=== PATIENT | female | born 1985 | race Caucasian/White ===

== ENCOUNTER 2016-10-13 18:23 | Observation (INO) | payer OTHER ==
[~2016-10-13] VITALS: Ht 160 cm; Wt 67.3 kg
== END 2016-10-13 22:40 | disposition home or self-care (01) ==
LOC: LDOP 18:23 → INTOOBSV 20:30 → LDIP 20:30
PROVIDERS: ADMIT Family Medicine; ATTEND Obstetrics & Gynecology Maternal & Fetal Medicine
DX: O62.9 Abnormality of forces of labor, unspecified (principal); O36.0130 Maternal care for anti-D [Rh] antibodies, third trimester, not applicable or unspecified; Z3A.28 28 weeks gestation of pregnancy
CPT/HCPCS: 36415; 59025; 76815; 85025; 85460; G0378

== ENCOUNTER 2016-11-20 14:17 | Inpatient (IN) | payer OTHER ==
[~2016-11-20] VITALS: Ht 160 cm; Wt 70.0 kg
[2016-11-20] MEDS: LACTATED RINGERS 1,000 ML IV SCH (14:31)
[2016-11-20] MEDS ORDERED: PLEASE ENTER HEIGHT AND WEIGHT MC SCH (15:00)
[2016-11-20] MEDS ORDERED: OXYTOCIN 30U/ 0.9% NaCL 500ML 500 ML IV ONE (15:29)
[2016-11-20] MEDS: D5%-LACTATED RINGERS 1,000 ML IV SCH ×2 (15:29→23:29)
[2016-11-20] MEDS ORDERED: AMPICILLIN 2 GM in SODIUM CHLORIDE 0.9% 100 ML IVPB STA (15:29)
[2016-11-20] MEDS ORDERED: FENTANYL PF 100 MCG/2ML IVPush PRN (15:30)
[2016-11-20] MEDS ORDERED: CALCIUM CARBONATE 500 MG TAB.CHEW PO PRN (15:30)
[2016-11-20] MEDS ORDERED: ONDANSETRON 2MG/ML, 2ML IVPush PRN (15:30)
[2016-11-20] MEDS ORDERED: MAGNESIUM SULF. PMX 20GM/500ML 500 ML IV ONE (17:55)
[2016-11-20] MEDS ORDERED: TRINTELLIX 5 MG HOMEMEDPO SCH (18:30)
[2016-11-20] MEDS: LACTATED RINGERS 1,000 ML IV PRN (18:30)
[2016-11-20] MEDS ORDERED: DEPLIN 15 MG HOMEMEDPO SCH (18:30)
[2016-11-20] MEDS ORDERED: BETAMETHASONE 6 MG/ML, 5ML IM ONE (18:47)
[2016-11-20] MEDS: BETAMETHASONE 6 MG/ML, 5ML IM SCH (18:55)
[2016-11-20 19:00] VITALS: BP 112/65
[2016-11-20] MEDS ORDERED: MAGNESIUM SULFATE PMX 4GM/100M 100 ML IVPB ONE (19:00)
[2016-11-20] MEDS ORDERED: MAGNESIUM SULFATE PMX 2GM/50ML 50 ML IVPB ONE (19:00)
[2016-11-20] MEDS: AMPICILLIN 1 GM in SODIUM CHLORIDE 0.9% 50 ML IVPB SCH ×2 (19:17→23:25)
[2016-11-20] MEDS ORDERED: Trintellix PO (19:32)
[2016-11-20] MEDS ORDERED: PREN1TAB60 PO (19:32)
[2016-11-20] MEDS ORDERED: FOLIC ACID PO (19:32)
[2016-11-20] MEDS ORDERED: TRINTELLIX 10 MG HOMEMEDPO SCH (19:50)
[2016-11-20] MEDS ORDERED: NEWBORN KIT ONE (19:54)
[2016-11-20] MEDS: PRENATAL VIT/IRON/FA 1 EACH TABLET HOMEMEDPO SCH (21:00)
[2016-11-21] MEDS ORDERED: MAGNESIUM SULF. PMX 20GM/500ML 500 ML IV ONE ×3 (02:43→23:39)
[2016-11-21] MEDS: MAGNESIUM SULF. PMX 20GM/500ML 500 ML IV SCH ×4 (02:45→23:41)
[2016-11-21] MEDS: AMPICILLIN 1 GM in SODIUM CHLORIDE 0.9% 50 ML IVPB SCH ×6 (02:47→23:09)
[2016-11-21] MEDS: LACTATED RINGERS 1,000 ML IV SCH ×4 (07:29→23:29)
[2016-11-21] MEDS: D5%-LACTATED RINGERS 1,000 ML IV SCH ×3 (07:29→23:29)
[2016-11-21] MEDS ORDERED: ACETAMINOPHEN 325 MG TABLET ONE ×2 (07:53→19:42)
[2016-11-21] MEDS: ACETAMINOPHEN 325 MG TABLET PO PRN (07:59)
[2016-11-21 08:00] VITALS: BP 110/70
[2016-11-21] MEDS: DEPLIN 15 MG HOMEMEDPO SCH (09:00)
[2016-11-21] MEDS: TRINTELLIX HOMEMEDPO SCH (09:00)
[2016-11-21] MEDS: PRENATAL VIT/IRON/FA 1 EACH TABLET HOMEMEDPO SCH (09:00)
[2016-11-21 12:30] VITALS: BP 102/66
[2016-11-21] MEDS: BETAMETHASONE 6 MG/ML, 5ML IM SCH (18:43)
[2016-11-21] MEDS ORDERED: DIPHENHYDRAMINE 25 MG CAPSULE ONE (19:42)
[2016-11-21 19:45] VITALS: BP 116/79
[2016-11-21] MEDS: DIPHENHYDRAMINE 25 MG CAPSULE PO PRN (19:45)
[2016-11-21] MEDS ORDERED: DIPHENHYDRAMINE 12.5MG/5ML, 10ML UDC PO PRN (20:00)
[2016-11-21] MEDS: LACTATED RINGERS 1,000 ML IV PRN (23:17)
[2016-11-22] MEDS: AMPICILLIN 1 GM in SODIUM CHLORIDE 0.9% 50 ML IVPB SCH ×5 (02:40→19:41)
[2016-11-22 05:37] VITALS: BP 102/58
[2016-11-22] MEDS ORDERED: DOCUSATE 100 MG CAPSULE ONE (07:51)
[2016-11-22] MEDS ORDERED: ACETAMINOPHEN 325 MG TABLET ONE (07:51)
[2016-11-22] MEDS: ACETAMINOPHEN 325 MG TABLET PO PRN (07:54)
[2016-11-22] MEDS: DOCUSATE 100 MG CAPSULE PO PRN (07:54)
[2016-11-22] MEDS: TRINTELLIX HOMEMEDPO SCH (09:00)
[2016-11-22] MEDS ORDERED: MAGNESIUM SULF. PMX 20GM/500ML 500 ML IV ONE (09:08)
[2016-11-22] MEDS: MAGNESIUM SULF. PMX 20GM/500ML 500 ML IV SCH (09:22)
[2016-11-22] MEDS: LACTATED RINGERS 1,000 ML IV SCH (13:44)
[2016-11-22] MEDS: DEPLIN 15 MG HOMEMEDPO SCH (19:00)
[2016-11-22] MEDS: PRENATAL VIT/IRON/FA 1 EACH TABLET HOMEMEDPO SCH (19:00)
[2016-11-22] MEDS ORDERED: NEWBORN KIT ONE (20:43)
[2016-11-22] MEDS ORDERED: DIPHENHYDRAMINE 25 MG CAPSULE ONE (21:37)
[2016-11-22] MEDS: DIPHENHYDRAMINE 25 MG CAPSULE PO PRN (21:40)
[2016-11-23] MEDS: AMPICILLIN 1 GM in SODIUM CHLORIDE 0.9% 50 ML IVPB SCH ×4 (00:10→11:29)
[2016-11-23] MEDS ORDERED: CALCIUM CARBONATE 500 MG TAB.CHEW ONE (04:06)
[2016-11-23] MEDS ORDERED: LIDOCAINE 1%, 20ML ONE (08:06)
[2016-11-23] MEDS ORDERED: OXYTOCIN 30U/ 0.9% NaCL 500ML 500 ML ONE ×4 (08:06→19:04)
[2016-11-23] MEDS ORDERED: MISOPROSTOL 200 MCG TABLET ONE ×2 (08:06→10:47)
[2016-11-23] MEDS: OXYTOCIN 30U/ 0.9% NaCL 500ML 500 ML IV PRN ×2 (08:10→18:08)
[2016-11-23] MEDS ORDERED: ONDANSETRON 2MG/ML, 2ML ONE ×4 (08:33→20:47)
[2016-11-23] MEDS: LACTATED RINGERS 1,000 ML IV SCH ×3 (08:44→15:20)
[2016-11-23] MEDS: TRINTELLIX HOMEMEDPO SCH (09:00)
[2016-11-23] MEDS: DEPLIN 15 MG HOMEMEDPO SCH (09:00)
[2016-11-23] MEDS: PRENATAL VIT/IRON/FA 1 EACH TABLET HOMEMEDPO SCH (09:00)
[2016-11-23] MEDS ORDERED: LIDOCAINE/PF 1.5%-EPI 1:200K, 30ML ONE (09:22)
[2016-11-23] MEDS ORDERED: FENTANYL/BUPIV./NS/PF 250 ML EPIDCONT ONE (09:22)
[2016-11-23] MEDS ORDERED: FENTANYL/BUPIV./NS/PF 250 ML EPIDCONT SCH (09:58)
[2016-11-23] MEDS ORDERED: LACTATED RINGERS 1,000 ML IV SCH (09:58)
[2016-11-23] MEDS ORDERED: LACTATED RINGERS 1,000 ML IVBOLUS PRN (10:00)
[2016-11-23] MEDS ORDERED: NALOXONE 0.4 MG/ML, 1ML IVPush PRN (10:00)
[2016-11-23] MEDS ORDERED: EPHEDRINE 50 MG/ML, 1ML IVPush PRN (10:00)
[2016-11-23] MEDS ORDERED: SUCCINYLCHOLINE 20 MG/ML, 10ML ONE (10:54)
[2016-11-23] MEDS ORDERED: PROPOFOL 10 MG/ML, 20ML ONE (10:54)
[2016-11-23] MEDS ORDERED: EPHEDRINE 50 MG/ML, 1ML ONE (10:54)
[2016-11-23] MEDS ORDERED: DEXAMETHASONE 4 MG/ML, 1ML ONE (10:54)
[2016-11-23] MEDS ORDERED: CEFAZOLIN 1,000 MG ONE (10:54)
[2016-11-23] MEDS ORDERED: IBUPROFEN 600 MG TABLET ONE (16:41)
[2016-11-23] MEDS ORDERED: CALCIUM CARBONATE 500 MG TAB.CHEW PO PRN (17:00)
[2016-11-23] MEDS ORDERED: MEASLES,MUMPS&RUBELLA VACC/PF 0.5 ML SQ-VACC PRN (17:00)
[2016-11-23] MEDS ORDERED: MAGNESIUM HYDROXIDE 8%, 30ML UDC PO PRN (17:00)
[2016-11-23] MEDS ORDERED: RHOGAM FROM BLOOD BANK 1 NOTE EA IM/IV ONE (17:00)
[2016-11-23] MEDS ORDERED: OXYcodone/APAP 5/325MG TABLET PO PRN (17:00)
[2016-11-23] MEDS ORDERED: ACETAMINOPHEN 325 MG TABLET PO PRN ×2 (17:00)
[2016-11-23] MEDS ORDERED: IBUPROFEN 600 MG TABLET PO PRN (17:00)
[2016-11-23] MEDS ORDERED: DOCUSATE 100 MG CAPSULE PO PRN (17:00)
[2016-11-23] MEDS ORDERED: MISOPROSTOL 200 MCG TABLET PR PRN (17:00)
[2016-11-23] MEDS ORDERED: DIPH,PERTUSS(ACELL),TET VAC/PF NC IM-VACC PRN (17:00)
[2016-11-23] MEDS ORDERED: OXYcodone/APAP 5/325MG TABLET ONE (17:09)
[2016-11-23] MEDS: ONDANSETRON 2MG/ML, 2ML IV PRN (17:16)
[2016-11-23] MEDS: OXYcodone/APAP 5/325MG TABLET PO PRN (17:16)
[2016-11-23] MEDS ORDERED: METHYLERGONOVINE 0.2 MG/ML IM ONE (17:58)
[2016-11-23] MEDS: METHYLERGONOVINE 0.2 MG/ML IM SCH (18:07)
[2016-11-23] MEDS ORDERED: MISOPROSTOL 200 MCG TABLET PR ONE (18:30)
[2016-11-23 18:52] LABS: DIFF TOTAL CELLS COUNTED 100 CELL DIFF
[2016-11-23 18:53] LABS: VERIFY COUNTS? YES
[2016-11-23] MEDS: OXYTOCIN 30U/ 0.9% NaCL 500ML 500 ML IV SCH (19:07)
[2016-11-23] MEDS ORDERED: FENTANYL PF 100 MCG/2ML ONE ×2 (20:13→21:25)
[2016-11-23] MEDS ORDERED: MIDAZOLAM 1 MG/ML, 2ML ONE (21:25)
[2016-11-23 21:54] LABS: DIFF TOTAL CELLS COUNTED 100 CELL DIFF
[2016-11-23 21:56] LABS: VERIFY COUNTS? YES
[2016-11-23 22:20] VITALS: BP 118/70
[2016-11-23] MEDS ORDERED: ACETAMINOPHEN 325 MG TABLET ONE (23:36)
[2016-11-23] MEDS: ACETAMINOPHEN 325 MG TABLET PO PRN (23:38)
[2016-11-24] MEDS ORDERED: OXYcodone/APAP 5/325MG TABLET ONE ×4 (00:19→20:32)
[2016-11-24] MEDS: OXYcodone/APAP 5/325MG TABLET PO PRN ×4 (00:22→20:34)
[2016-11-24] MEDS ORDERED: morphine SULFATE 10 MG/ML, 1ML ONE (01:43)
[2016-11-24] MEDS ORDERED: ONDANSETRON 2MG/ML, 2ML ONE (01:54)
[2016-11-24] MEDS: ONDANSETRON 2MG/ML, 2ML IV PRN (01:55)
[2016-11-24] MEDS: LACTATED RINGERS 1,000 ML IV PRN ×4 (01:57→17:50)
[2016-11-24] MEDS ORDERED: morphine SULFATE 10 MG/ML, 1ML IVPush ONE (02:00)
[2016-11-24] MEDS: DEPLIN 15 MG HOMEMEDPO SCH (09:00)
[2016-11-24] MEDS: TRINTELLIX HOMEMEDPO SCH (09:00)
[2016-11-24] MEDS: PRENATAL VIT/IRON/FA 1 EACH TABLET PO SCH (09:00)
[2016-11-24] MEDS: PRENATAL VIT/IRON/FA 1 EACH TABLET HOMEMEDPO SCH (09:00)
[2016-11-24 11:24] VITALS: BP 64/37
[2016-11-24 11:25] VITALS: BP 61/40
[2016-11-24] MEDS: OXYTOCIN 30U/ 0.9% NaCL 500ML 500 ML IV SCH ×2 (12:41→22:41)
[2016-11-24 19:40] VITALS: BP 101/57
[2016-11-25] MEDS ORDERED: OXYcodone/APAP 5/325MG TABLET ONE ×2 (00:30→04:42)
[2016-11-25] MEDS: OXYcodone/APAP 5/325MG TABLET PO PRN ×3 (00:32→16:46)
[2016-11-25] MEDS: LACTATED RINGERS 1,000 ML IV PRN ×2 (02:59→08:51)
[2016-11-25] MEDS ORDERED: OXYTOCIN 30U/ 0.9% NaCL 500ML 500 ML ONE (04:31)
[2016-11-25] MEDS ORDERED: METHYLERGONOVINE 0.2 MG/ML IM ONE (04:32)
[2016-11-25] MEDS: METHYLERGONOVINE 0.2 MG/ML IM SCH (04:39)
[2016-11-25] MEDS: OXYTOCIN 30U/ 0.9% NaCL 500ML 500 ML IV SCH ×3 (04:39→18:41)
[2016-11-25] MEDS ORDERED: ONDANSETRON 2MG/ML, 2ML ONE (04:44)
[2016-11-25] MEDS: ONDANSETRON 2MG/ML, 2ML IV PRN (04:46)
[2016-11-25] MEDS ORDERED: DIPHENHYDRAMINE 25 MG CAPSULE ONE (07:46)
[2016-11-25] MEDS: DIPHENHYDRAMINE 25 MG CAPSULE PO PRN (07:49)
[2016-11-25 08:01] VITALS: BP 108/68
[2016-11-25 08:49] VITALS: BP 98/57
[2016-11-25] MEDS: PRENATAL VIT/IRON/FA 1 EACH TABLET PO SCH (09:00)
[2016-11-25] MEDS: PRENATAL VIT/IRON/FA 1 EACH TABLET HOMEMEDPO SCH (09:00)
[2016-11-25] MEDS: TRINTELLIX HOMEMEDPO SCH (09:00)
[2016-11-25] MEDS: DEPLIN 15 MG HOMEMEDPO SCH (09:00)
[2016-11-25 20:00] VITALS: BP 104/59
[2016-11-25] MEDS: FERROUS SULFATE 325 MG TABLET PO SCH (20:21)
[2016-11-25] MEDS: DOCUSATE 100 MG CAPSULE PO PRN (21:43)
[2016-11-26 01:30] VITALS: BP 108/73
[2016-11-26] MEDS: OXYTOCIN 30U/ 0.9% NaCL 500ML 500 ML IV SCH (04:41)
[2016-11-26] MEDS ORDERED: DOCU-30 PO (08:51)
[2016-11-26] MEDS ORDERED: OXYC-302 PO (08:51)
[2016-11-26] MEDS ORDERED: IBUP-1222 PO (08:51)
[2016-11-26] MEDS: TRINTELLIX HOMEMEDPO SCH (09:00)
[2016-11-26] MEDS: DEPLIN 15 MG HOMEMEDPO SCH (09:00)
[2016-11-26] MEDS: PRENATAL VIT/IRON/FA 1 EACH TABLET PO SCH (09:00)
[2016-11-26] MEDS: PRENATAL VIT/IRON/FA 1 EACH TABLET HOMEMEDPO SCH (09:00)
[2016-11-26] MEDS: FERROUS SULFATE 325 MG TABLET PO SCH ×2 (09:13→17:00)
[2016-11-26] MEDS: ACETAMINOPHEN 325 MG TABLET PO PRN (09:14)
[2016-11-26] MEDS: DOCUSATE 100 MG CAPSULE PO PRN (09:14)
[2016-11-26 10:00] VITALS: BP 91/57
[2016-11-26 13:48] LABS: DIFF TOTAL CELLS COUNTED 100 CELL DIFF
[2016-11-26 13:49] LABS: VERIFY COUNTS? YES
[2016-11-26 13:51] LABS: ANISOCYTOSIS 1+; POLYCHROMASIA 1+
[2016-11-26] MEDS: OXYcodone/APAP 5/325MG TABLET PO PRN (14:41)
[2016-11-26] MEDS ORDERED: ONDA4TAB10 PO (15:38)
[2016-11-26] MEDS ORDERED: ONDANSETRON ODT 4 MG PO ONE (16:00)
== END 2016-11-26 20:04 | disposition home or self-care (01) | DRG 767 ==
LOC: LDOP 14:17 → LDIP 15:18 → 2NE 11-24 02:42 → 2NW 11-25 15:42
PROVIDERS: ADMIT Obstetrics & Gynecology Maternal & Fetal Medicine; ATTEND Obstetrics & Gynecology Maternal & Fetal Medicine
PROC: 00HU33Z Insertion of Infusion Device into Spinal Canal, Percutaneous Approach (ICD-10-PCS; principal; 2016-11-23)
PROC: 10D17ZZ Extraction of Products of Conception, Retained, Via Natural or Artificial Opening (ICD-10-PCS; 2016-11-23)
PROC: 10E0XZZ Delivery of Products of Conception, External Approach (ICD-10-PCS; 2016-11-23)
PROC: 0KQM0ZZ Repair Perineum Muscle, Open Approach (ICD-10-PCS; 2016-11-23)
PROC: 0W3R7ZZ Control Bleeding in Genitourinary Tract, Via Natural or Artificial Opening (ICD-10-PCS; 2016-11-23)
PROC: 3E0R3CZ (ICD-10-PCS; 2016-11-23)
PROC: 3E033VJ Introduction of Other Hormone into Peripheral Vein, Percutaneous Approach (ICD-10-PCS; 2016-11-23)
PROC: 30233N1 Transfusion of Nonautologous Red Blood Cells into Peripheral Vein, Percutaneous Approach (ICD-10-PCS; 2016-11-23)
DX: O42.913 Preterm premature rupture of membranes, unspecified as to length of time between rupture and onset of labor, third trimester (principal); O60.14X0 Preterm labor third trimester with preterm delivery third trimester, not applicable or unspecified; O72.2 Delayed and secondary postpartum hemorrhage; O99.824 Streptococcus B carrier state complicating childbirth; F41.9 Anxiety disorder, unspecified; O99.344 Other mental disorders complicating childbirth; O70.1 Second degree perineal laceration during delivery; O62.2 Other uterine inertia; Z23 Encounter for immunization; Z3A.34 34 weeks gestation of pregnancy; Z79.899 Other long term (current) drug therapy; Z37.0 Single live birth; O90.81 Anemia of the puerperium; D64.9 Anemia, unspecified
CPT/HCPCS: 36415; 81003; 82803; 82962; 83735; 85014; 85018; 85025; 85027; 86850; 86900; 86923; 87070; 87075; 87076; 87077; 87081; 87086; 87186; 87205; 88305; 88307; 90715; 93005; J0290; J0690; J0702; J1100; J2250; J2405; J2704; J3010; J3490; Q0162; J0330; J2210; J2270; J2590; J3475; J7120; P9016; Q0163

== ENCOUNTER 2016-12-09 10:26 | Day surgery (SDC) | payer OTHER ==
[~2016-12-09] VITALS: Ht 160 cm; Wt 63.3 kg
[~2016-12-09 10:26] MED LIST: DOCU-30 PO; FOLIC ACID PO; IBUP-1222 PO; ONDA4TAB10 PO; OXYC-302 PO; PREN1TAB60 PO; Trintellix PO
[2016-12-09 11:06] VITALS: BP 100/68
[2016-12-09] MEDS ORDERED: FERR324T5 PO (11:06)
[2016-12-09] MEDS ORDERED: IRON PO (11:19)
[2016-12-09] MEDS ORDERED: AMOX1TAB64 PO (11:19)
[2016-12-09] MEDS ORDERED: LACTATED RINGERS 1,000 ML IV SCH (11:22)
[2016-12-09 11:45] LABS: ASPARTATE AMINO TRANSFERASE 17 U/L (15-37); BLOOD UREA NITROGEN 8 mg/dL (7-18)
[2016-12-09] MEDS ORDERED: OXYTOCIN 10 UNITS/ML, 1ML ONE (11:50)
[2016-12-09] MEDS ORDERED: SILVER NITRATE STICK TP ONE (11:50)
[2016-12-09] MEDS ORDERED: VASOPRESSIN 20 UNIT/ML, 1ML ONE ×2 (11:51→11:53)
[2016-12-09] MEDS ORDERED: FENTANYL PF 100 MCG/2ML ONE (11:56)
[2016-12-09] MEDS ORDERED: MIDAZOLAM 1 MG/ML, 2ML ONE (11:56)
[2016-12-09] MEDS ORDERED: DEXAMETHASONE 4 MG/ML, 1ML ONE (12:15)
[2016-12-09] MEDS ORDERED: CEFAZOLIN 1,000 MG ONE (12:15)
[2016-12-09] MEDS ORDERED: ONDANSETRON 2MG/ML, 2ML ONE (12:15)
[2016-12-09] MEDS ORDERED: METOCLOPRAMIDE 5 MG/ML, 2ML ONE (12:15)
[2016-12-09] MEDS ORDERED: PROPOFOL 10 MG/ML, 20ML ONE (12:15)
[2016-12-09] MEDS ORDERED: PROPOFOL 10 MG/ML, 50ML ONE (12:15)
[2016-12-09] MEDS ORDERED: ALBUTEROL SULFATE 2.5 MG/3 ML NPPB PRN (12:30)
[2016-12-09] MEDS ORDERED: PROMETHAZINE 25 MG/ML, 1ML IV PRN (12:30)
[2016-12-09] MEDS ORDERED: METOPROLOL 1 MG/ML, 5ML IV PRN (12:30)
[2016-12-09] MEDS ORDERED: ACETAMINOPHEN 325 MG TABLET PO PRN (12:30)
[2016-12-09] MEDS ORDERED: ONDANSETRON 2MG/ML, 2ML IVPush PRN (12:30)
[2016-12-09] MEDS ORDERED: OXYcodone 5 MG/5 ML ORAL.SOL UDC PO PRN (12:30)
[2016-12-09] MEDS ORDERED: MEPERIDINE/PF 25MG/0.5ML IVPush PRN (12:30)
[2016-12-09] MEDS ORDERED: hydrALAzine 20 MG/ML, 1ML IV PRN (12:30)
[2016-12-09] MEDS ORDERED: LABETALOL 5MG/ML, 20ML IV PRN (12:30)
[2016-12-09] MEDS ORDERED: EPHEDRINE 50 MG/ML, 1ML IVPush PRN (12:30)
[2016-12-09] MEDS ORDERED: MISOPROSTOL 200 MCG TABLET ONE (13:00)
== END 2016-12-09 15:20 ==
LOC: OUT 10:26
PROVIDERS: ATTEND Obstetrics & Gynecology Maternal & Fetal Medicine
DX: O72.1 Other immediate postpartum hemorrhage (principal); O73.0 Retained placenta without hemorrhage
CPT/HCPCS: 36415; 52000; 59821; 76998; 80053; 85025; 86850; 86900; 86923; 88305; J0690; J1100; J2250; J2405; J2704; J2765; J3010; J7120; J2590

== ENCOUNTER → 2017-12-17 | Outpatient (CLI) | payer OTHER ==
[~2017-12-17] MED LIST changes: +AMOX1TAB64 PO; +DOCU-131 PO; -DOCU-30 PO; +FERR324T5 PO; +IRON PO
== END | disposition home or self-care (01) ==
LOC: CFH 07:08
PROVIDERS: ATTEND Family Medicine
DX: S49.92XS Unspecified injury of left shoulder and upper arm, sequela (principal); M75.92 Shoulder lesion, unspecified, left shoulder; X58.XXXS Exposure to other specified factors, sequela

== ENCOUNTER 2019-03-02 13:16 | Outpatient (CLI) | payer OTHER | END 2019-03-02 23:59 | disposition home or self-care (01) | LOC: CFH 13:16 | PROVIDERS: ATTEND Surgery | DX: R92.8 Other abnormal and inconclusive findings on diagnostic imaging of breast (principal) | CPT/HCPCS: 76642; 77066; G0279 ==